=== PATIENT | female | born 1965 ===

== ENCOUNTER 2022-06-06 11:06 | Outpatient (CLI) | payer OTHER | END 2022-06-06 11:19 | disposition home or self-care (01) | LOC: SONOGRAMA 11:06 | PROVIDERS: ATTEND Internal Medicine Endocrinology, Diabetes & Metabolism | DX: E04.1 Nontoxic single thyroid nodule (principal) ==

== ENCOUNTER 2022-11-19 12:15 | Outpatient (CLI) | payer OTHER | END 2022-11-19 12:18 | disposition home or self-care (01) | LOC: RAD 12:15 | PROVIDERS: ATTEND Physical Medicine & Rehabilitation | DX: M25.511 Pain in right shoulder (principal) ==

== ENCOUNTER 2022-12-06 14:52 | Outpatient (CLI) | payer OTHER | END 2022-12-06 15:00 | disposition home or self-care (01) | LOC: RAD 14:52 | PROVIDERS: ATTEND Physical Medicine & Rehabilitation | DX: M54.2 Cervicalgia (principal) ==

== ENCOUNTER 2022-12-10 14:01 | Outpatient (CLI) | payer OTHER | END 2022-12-10 14:19 | disposition home or self-care (01) | LOC: MRI 14:01 | PROVIDERS: ATTEND Physical Medicine & Rehabilitation | DX: M25.511 Pain in right shoulder (principal); M67.813 Other specified disorders of tendon, right shoulder | CPT/HCPCS: 73221 ==

== ENCOUNTER 2024-08-19 15:17 | Outpatient (CLI) | payer OTHER | END 2024-08-19 15:30 | disposition home or self-care (01) | LOC: MAMO-SONO 15:17 | DX: Z12.39 Encounter for other screening for malignant neoplasm of breast (principal) ==

== ENCOUNTER 2025-02-05 07:35 | Outpatient (CLI) | payer OTHER | END 2025-02-05 07:44 | disposition home or self-care (01) | LOC: SONOGRAMA 07:35 | PROVIDERS: ATTEND Internal Medicine | DX: R10.9 Unspecified abdominal pain (principal) ==

== ENCOUNTER 2025-04-12 09:47 | Outpatient (CLI) | payer OTHER | END 2025-04-12 09:50 | disposition home or self-care (01) | LOC: NUCLEAR 09:47 | DX: I20.0 Unstable angina (principal) ==

== ENCOUNTER 2025-06-16 13:19 | Outpatient (CLI) | payer OTHER | END 2025-06-16 13:22 | disposition home or self-care (01) | LOC: SONOGRAMA 13:19 | DX: N95.0 Postmenopausal bleeding (principal) ==